=== PATIENT | female | born 1975 | race African-American/Black ===

== ENCOUNTER 2016-08-22 13:23 | Emergency (ER) | payer OTHER ==
[~2016-08-22] VITALS: Ht 167.6 cm; Wt 63.5 kg
[2016-08-22 14:26] LABS: URINE BILIRUBIN NEGATIVE (Negative); URINE BLOOD NEGATIVE (Negative); URINE COLOR YELLOW; URINE GLUCOSE-RANDOM* NEGATIVE (Negative); URINE KETONES 1+ (Negative); URINE LEUKOCYTES-REFLEX NEGATIVE (Negative); URINE PROTEIN (DIPSTICK) NEGATIVE (Negative); URINE SPECIFIC GRAVITY 1.025 (1.003-1.035); URINE UROBILINOGEN 0.2 E.U./dl (0.2-1.0)
[2016-08-22 14:36] LABS: SQUAMOUS 4-10 Moderate /LPF (0-3); URINE RBC None Seen /HPF (0-2); URINE WBC-REFLEX 0-5 Rare /HPF (0-5)
[2016-08-22 14:37] LABS: CASTS None Seen /LPF (None Seen); CRYSTALS None Seen /LPF (None Seen)
[2016-08-22 16:34] LABS: CALCIUM 9.2 mg/dL (8.5-10.1); CREATININE 0.8 mg/dL (0.6-1.0); POTASSIUM 3.2 mmol/L (3.5-5.1)
[2016-08-22 16:38] LABS: ALBUMIN 4.2 g/dL (3.4-5.0); TOTAL BILIRUBIN 0.6 mg/dL (<0.1-1.0); TOTAL PROTEIN 8.2 g/dL (6.4-8.2)
[2016-08-22 17:41] LABS: ABSOLUTE NEUTROPHILS 3.7 thou/uL (1.4-8.2); BASOPHILS 0.5 % (0.0-2.0); EOSINOPHILS 5.1 % (0.0-3.0); HEMATOCRIT 39.7 % (37.0-47.0); HEMOGLOBIN 13.3 gm/dL (12.0-15.0); MCH 30.9 pg (26.0-34.0); MCHC 33.6 g/dL (28.0-37.0); MONOCYTES 11.2 % (1.0-8.0); PLATELET COUNT 337 thou/uL (150-400); POLYS 55.2 % (36.0-66.0); RBC 4.31 mil/uL (4.20-5.00); RDW 14.8 % (10.5-14.5); WBC 6.7 thou/uL (4.0-11.0)
[2016-08-22 17:42] LABS: MANUAL DIFF NO
[2016-08-22] MEDS ORDERED: MEDROLDOSEPACK PO (17:59)
[2016-08-22] MEDS ORDERED: PROVENTIL HFA6.7 G1 INH (17:59)
[2016-08-22] MEDS ORDERED: MACROBID 100 M100 M1 PO (17:59)
[2016-08-22 18:25] VITALS: BP 118/86
== END 2016-08-22 18:28 | disposition home or self-care (01) ==
LOC: ER 13:23
PROVIDERS: Physician Assistant
DX: N39.0 Urinary tract infection, site not specified (principal); J40 Bronchitis, not specified as acute or chronic; E87.6 Hypokalemia; F17.210 Nicotine dependence, cigarettes, uncomplicated